=== PATIENT | female | born 1960 | race Caucasian/White ===

== ENCOUNTER → 2017-02-14 | Outpatient (CLI) | payer BC ==
[2015-10-06 15:38] VITALS: BP 159/68
--- NOTE | 2017-02-15 12:58 | NM ---
Study: Thyroid uptake History: Abnormal results of thyroid function studies. Fatigue and weight gain. Technique: 219.19 uCi I 123 was administered orally. 6 hr and 24 hr uptake was measured. Comparison: None. Findings: There is asymmetric uptake of radionuclide in the left lobe of the thyroid compared to the right. There is relatively decreased uptake throughout the right lobe of the thyroid. No discrete foc us of increased or decreased uptake is appreciated. Impression: 1. Asymmetric and heterogeneous radionuclide uptake within the thyroid gland, without discrete focal abnormality. In the absence of any prior thyroid surgery, imaging characteristics suggest decrease th yroid function as might be seen with chronic thyroiditis or thyroid goiter. 2. Correlation with thyroid ultrasound is recommended. Reported By:
== END | disposition home or self-care (01) | DRG 645 ==
LOC: RAD 08:35
PROVIDERS: ATTEND Internal Medicine
DX: R94.6 Abnormal results of thyroid function studies (principal); E03.8 Other specified hypothyroidism; Z86.39 Personal history of other endocrine, nutritional and metabolic disease
CPT/HCPCS: 78014; A9516